=== PATIENT | female | born 1955 | race Two or more races ===

== ENCOUNTER 2018-02-09 10:40 | Day surgery (SDC) | payer OTHER ==
[2018-02-01 15:50] VITALS: BMI 29.1
--- NOTE | 2018-02-04 14:03 | HP ---
Admitting History and Physical - Primary Care Physician PCP: Marcel Medarno - Admission Chief Complaint: right breast atypia History of Present Illness: 62 year old postmenapausal female who underwent left breast wide excision for atypia 2005.Now on 05/2017 mammogram and US showed right breast intraductal density at 9:00. US core biopsy was delayed due to cerebral aneurysm clipping. US core biopsy right breast 9:00 showed focal atypical lobular hyperplasia. Her for right breast wide excision. History Source: Patient Limitations to Obtaining History: No Limitations - Past Medical History [employer]: Yes: Other (cerebral anuerysm clipping) Cardiovascular: Yes: Aneurysm (cerebral aneurysm clipping 2017) - Past Surgical History Additional Past Surgical History: cerebral anuerysm clipping 2018 left breast wide excision atypia 2005 left breast subareolar bx benign 2006 - Smoking History Smoking history: Former smoker Have you smoked in the past 12 months: No If you are a former smoker, when did you quit?: 30yrs ago - Alcohol/Substance Use Hx Alcohol Use: Yes (social) Home Medications - Allergies Allergies/Adverse Reactions: Allergies Allergy/AdvReac Type Severity Reaction Status Date / Time No Known Allergies Allergy Verified 12/21/17 12:00 - Home Medications Home Medications: Ambulatory Orders Calcium Carbonate [Calcium] 500 mg PO DAILY 02/01/18 Metoprolol Succinate 25 mg PO DAILY 02/01/18 Multivitamin [One Daily] 1 each PO DAILY 02/01/18 Acme-3 Fatty Acids/Fish Oil [Fish Oil 1,000 mg Capsule] 1 each PO DAILY Family Disease History - Family Disease History Family Disease History: CA: Father (gastric ca), Brother (pancreatic ca prostate ca// brother throat ca), Sister (lymphoma) Physical Examination Constitutional: Yes: No Distress Breast(s): Yes: Other (D cup breast symetrical no palpable densities in either breast or adenopathy healed left breast incision right breast post bx changes) Problem List - Problems (1) Atypical lobular hyperplasia of right breast Code(s): N60.91 - UNSPECIFIED BENIGN MAMMARY DYSPLASIA OF RIGHT BREAST Assessment/Plan right breast wide excision with mammogram needle localization
[2018-02-09] MEDS ORDERED: LIDOCAINE HCL 1%, 10 MG/ML (20ML VIAL) ONE (13:36)
[2018-02-09] MEDS ORDERED: BUPIVACAINE HCL 0.25% 125 MG/50 ML VIAL ONE (13:36)
[2018-02-09] MEDS ORDERED: MIDAZOLAM HCL 2 MG/2 ML SINGLE DOSE VIAL ONE (13:54)
[2018-02-09] MEDS ORDERED: LIDOCAINE HCL 1%, 10 MG/ML (50 mL VIAL) IJ ONE (14:17)
[2018-02-09] MEDS ORDERED: LIDOCAINE HCL 1%, 10 MG/ML (50 mL VIAL) INF ONE (14:17)
[2018-02-09] MEDS ORDERED: GUM MASTIC/STORAX/MSAL/ALCOHOL 1 DRP DROPSBTL MC ONE (14:56)
[2018-02-09] MEDS ORDERED: BUPIVACAINE HCL/PF 0.25% (2.5MG/ML) 10 ML VIAL IJ ONE (14:57)
[2018-02-09] MEDS ORDERED: PROPOFOL 20 ML ONE (15:03)
[2018-02-09] MEDS ORDERED: oxyCODONE HCL 5 MG TABLET PO PRN (15:09)
[2018-02-09] MEDS ORDERED: ONDANSETRON 4 MG/2 ML VIAL IVPUSH PRN ×2 (15:09→15:12)
[2018-02-09] MEDS ORDERED: KETOROLAC TROMETHAMINE 30 MG/1 ML VIAL IVPUSH PRN (15:12)
[2018-02-09] MEDS ORDERED: DEXTROSE 5%-0.45% SALINE 1,000 ML IV SCH (15:15)
[2018-02-09 16:05] VITALS: PULSE 69
[2018-02-09 16:14] VITALS: BP 120/72; TEMP 98
--- NOTE | 2018-02-09 18:06 | OP ---
DATE OF OPERATION: 02/09/2018 PREOPERATIVE DIAGNOSIS: Right breast atypical lobular hyperplasia. POSTOPERATIVE DIAGNOSIS: Right breast atypical lobular hyperplasia. PROCEDURE: Right breast wide excision with mammographic needle localization. ANESTHESIA: Local with IV sedation. SURGEON: Carol Medrano M.D. SPOOL CLEANER: Shama Peralta COMPLICATIONS: There were no complications. DESCRIPTION OF PROCEDURE: Briefly, the patient is a 62-year-old G1, P1, postmenopausal female of English descent. She has a strong family history with a brother who had pancreatic cancer and another brother with prostate cancer and another brother with throat cancer. Her sister had lymphoma and her father had stomach cancer. The patient has a history of undergoing a left breast wide excision back in 2005 for atypical lobular hyperplasia. She had another left breast biopsy in 2006 which was benign. She has been followed closely and was noted to have an intraductal density on ultrasound on mammography in May of 2017. She eventually underwent an ultrasound guided core biopsy in November of 2017 showing atypical lobular hyperplasia. The patient is advised to undergoing a wide excision with needle localization. She is brought in for the procedure on February 09, 2018. She first underwent the needle localization of the clip under mammographic guidance in radiology as well as to the holding area in [place]. In the holding area, site verification is made and informed consent was obtained. She was brought into the operating room and laid on the OR table in a supine position. Venodynes were placed on the lower extremities. She received a gram of Ancef prior to incision. The right breast was sterilely prepped and draped in the usual fashion, and she was given IV sedation. 1% lidocaine was given in a periareolar region around the right breast nipple areolar complex. Curvilinear incision was made around the right breast nipple areolar complex, and dissection was undertaken around the needle localization and the breast tissues were completely removed from around the wire with the wire in the middle of the specimen. The specimen was oriented with a long lateral, short superior suture, and specimen radiographs showed removal of the clip in questions. Hemostasis was achieved. The specimen was sent to pathology in formalin. The breast tissue was then reapproximated using 2-0 plain suture. The skin was closed using interrupted 3-0 deep dermal Vicryl suture and a running 4-0 subcuticular Biosyn suture. Mastisol and Steri-Strips were applied over the wound with a compressive dressing placed over this. The patient tolerated the procedure well without difficulty, was brought to the post anesthesia care unit in stable condition, to be discharged home the same day once discharge criteria are met. Again, all sponge and needle counts are correct at the end of the case, and estimated blood loss is minimal. CAROL MEDRANO M.D. NISHANT/[id number]
--- NOTE | 2018-02-16 12:31 | PATH ---
Surgical Pathology Report Patient Name: NANI GARSIA [facility]. Rec. #: [id number] /Age/Gender: 1955 (Age: 62) / F Account: [id number] Location: [facility] AMBULATORY Taken: 02/09/2018 Received: 02/09/2018 Reported: 02/16/2018 Physicians: Marcel Medrano M.D. Specimen(s) Received RIGHT BREAST WIDE EXCISION Clinical History Right breast atypia Final Diagnosis BREAST, LEFT, WIDE EXCISION: FOCAL ATYPICAL LOBULAR HYPERPLASIA (ALH) AND COLUMNAR CELL CHANGE. REMAINING BREAST TISSUE SHOWS PREDOMINANTLY ECTATIC DUCTS/ CYSTS WITH INSPISSATED SECRETIONS, MARKED PERIDUCTAL/PERICYSTIC CHRONIC INFLAMMATION WITH HISTIOCYTIC/GIANT CELL REACTION AND FIBROSIS, SUGGESTIVE OF DUCT/CYST RUPTURE WITH REACTION. CALCIFICATIONS ARE PRESENT IN ASSOCIATION WITH DUCT/CYST CONTENTS AND FOCALLY IN BENIGN GLANDULAR PARENCHYMA. Electronically Signed Marce Rome M.D. Gross Description Received in formalin, labeled "right breast wide excision," is a 15.4 x 5.2 x 2.6 cm. forte-yellow, irregular, portion of fibroadipose tissue with a needle localization wire present. There is a short suture marking the superior aspect and a long suture marking the lateral aspect, per the surgeon. There is no skin is present. The specimen is inked as follows: superior and lateral blue; inferior green; medial yellow; anterior red; deep black. The specimen is serially sectioned from lateral to medial. Sectioning reveals a previous biopsy site surrounded by firm fibrous tissue. The remaining breast parenchyma displays abundant white fibrous tissue with dilated ducts. The specimen is entirely submitted in 14 cassettes as follows: 1-lateral margin; 2-13- entirely submitted specimen from lateral to medial (previous biopsy site in cassettes 5 and 7; one bisected section each in cassettes 4/5, 6/7, 8/9, 01/07, 03/11); 14-medial margin. Time to formalin fixation: 9 minutes Total formalin fixation time: Approximately 27 hours. 02/10/201802/10/2018
== END 2018-02-09 16:14 | disposition home or self-care (01) ==
LOC: FASU 16:14
PROVIDERS: ATTEND Surgery Surgical Oncology
PROC: 0HBT0ZX Excision of Right Breast, Open Approach, Diagnostic (ICD-10-PCS; principal; 2018-02-09 13:00)
DX: N60.91 Unspecified benign mammary dysplasia of right breast (principal); N64.89 Other specified disorders of breast; Z80.8 Family history of malignant neoplasm of other organs or systems; Z86.79 Personal history of other diseases of the circulatory system; Z87.891 Personal history of nicotine dependence
CPT/HCPCS: 19281; 88307-TC